=== PATIENT | male | born 1935 | race Caucasian/White ===

== ENCOUNTER 2021-04-27 10:39 | Emergency (ER) | payer OTHER ==
[~2021-04-27] VITALS: Ht 170.2 cm; Wt 88.5 kg
[2021-05-01] MEDS ORDERED: DOXYCYCLINE MO100 MG PO (11:06)
== END 2021-04-27 14:00 | disposition home or self-care (01) ==
LOC: ER1 10:39
DX: Z23 Encounter for immunization (principal); U07.1 COVID-19; I10 Essential (primary) hypertension; E11.9 Type 2 diabetes mellitus without complications; Z95.5 Presence of coronary angioplasty implant and graft; Z88.0 Allergy status to penicillin
CPT/HCPCS: 99283; M0243

== ENCOUNTER 2021-05-01 18:32 | Inpatient (IN) | payer OTHER ==
[~2021-05-01] VITALS: Ht 170.2 cm; Wt 83.9 kg
[~2021-05-01 18:32] MED LIST: DOXYCYCLINE MO100 MG PO
[2021-05-01 19:46] LABS: HEMOGLOBIN 13.3 gm/dl (14.0-17.5); RED BLOOD COUNT 4.12 M/UL (4.20-5.50); WHITE BLOOD COUNT 12.4 K/UL (4.5-11.0)
[2021-05-02 04:08] LABS: HEMOGLOBIN 12.8 gm/dl (14.0-17.5); RED BLOOD COUNT 3.98 M/UL (4.20-5.50)
[2021-05-02] MEDS ORDERED: WARFARIN SODIUM4 MG PO (11:03)
[2021-05-02] MEDS ORDERED: PRAVASTATIN SOD20 MG PO (11:04)
[2021-05-02] MEDS ORDERED: GLIPIZIDE ER2.5 MG PO (11:04)
[2021-05-02] MEDS ORDERED: LISINOPRIL20 MG PO (11:05)
[2021-05-02] MEDS ORDERED: METOPROLOL SUCC25 MG PO (11:07)
[2021-05-02] MEDS ORDERED: ASPIRIN EC81 MG PO (11:08)
[2021-05-03 06:53] LABS: RED BLOOD COUNT 4.12 M/UL (4.20-5.50)
[2021-05-03 06:57] LABS: WHITE BLOOD COUNT 21.2 K/UL (4.5-11.0)
[2021-05-03 07:20] LABS: BUN/CREATININE RATIO 27 (0-10)
[2021-05-04 02:57] LABS: HEMOGLOBIN 13.4 gm/dl (14.0-17.5); RED BLOOD COUNT 4.19 M/UL (4.20-5.50)
[2021-05-04 03:15] LABS: BUN/CREATININE RATIO 28 (0-10)
[2021-05-04 03:22] LABS: WHITE BLOOD COUNT 13.7 K/UL (4.5-11.0)
[2021-05-05 07:16] LABS: RED BLOOD COUNT 4.35 M/UL (4.20-5.50); WHITE BLOOD COUNT 10.8 K/UL (4.5-11.0)
[2021-05-05 07:53] LABS: BUN/CREATININE RATIO 24 (0-10)
[2021-05-06 07:49] LABS: HEMOGLOBIN 13.8 gm/dl (14.0-17.5); RED BLOOD COUNT 4.35 M/UL (4.20-5.50)
[2021-05-06 07:50] LABS: WHITE BLOOD COUNT 13.9 K/UL (4.5-11.0)
[2021-05-06 08:27] LABS: BUN/CREATININE RATIO 27 (0-10)
[2021-05-07 06:44] LABS: HEMOGLOBIN 14.9 gm/dl (14.0-17.5); RED BLOOD COUNT 4.67 M/UL (4.20-5.50); WHITE BLOOD COUNT 11.9 K/UL (4.5-11.0)
[2021-05-07 07:02] LABS: BUN/CREATININE RATIO 27 (0-10)
[2021-05-08 06:59] LABS: HEMOGLOBIN 15.3 gm/dl (14.0-17.5); RED BLOOD COUNT 4.8 M/UL (4.20-5.50); WHITE BLOOD COUNT 12.5 K/UL (4.5-11.0)
[2021-05-08 07:19] LABS: BUN/CREATININE RATIO 25 (0-10)
[2021-05-09 07:19] LABS: BUN/CREATININE RATIO 28 (0-10)
[2021-05-09 07:29] LABS: HEMOGLOBIN 14.4 gm/dl (14.0-17.5); RED BLOOD COUNT 4.56 M/UL (4.20-5.50); WHITE BLOOD COUNT 11.3 K/UL (4.5-11.0)
[2021-05-10 06:54] LABS: BUN/CREATININE RATIO 28 (0-10)
[2021-05-12 04:58] LABS: BUN/CREATININE RATIO 29 (0-10)
[2021-05-13 06:00] LABS: BUN/CREATININE RATIO 34 (0-10)
--- NOTE | 2021-05-15 14:09 | NUR ---
House approved daughter "Veda" can come in to visit patient for 30mins. Visitor must wear appropriate PPE the entire time. Explained to visitor the risks associated with visiting with a positive covid diagnosis at this time. Visitor verbalized understanding.
[2021-05-16 07:58] LABS: HEMOGLOBIN 14.4 gm/dl (14.0-17.5); RED BLOOD COUNT 4.78 M/UL (4.20-5.50); WHITE BLOOD COUNT 10.4 K/UL (4.5-11.0)
[2021-05-17 05:45] LABS: HEMOGLOBIN 14.7 gm/dl (14.0-17.5); RED BLOOD COUNT 4.9 M/UL (4.20-5.50); WHITE BLOOD COUNT 8.5 K/UL (4.5-11.0)
[2021-05-18 07:31] LABS: HEMOGLOBIN 14.2 gm/dl (14.0-17.5); RED BLOOD COUNT 4.72 M/UL (4.20-5.50); WHITE BLOOD COUNT 9.7 K/UL (4.5-11.0)
[2021-05-18 07:50] LABS: BUN/CREATININE RATIO 22 (0-10)
[2021-05-19 06:56] LABS: HEMOGLOBIN 14.8 gm/dl (14.0-17.5); RED BLOOD COUNT 4.89 M/UL (4.20-5.50); WHITE BLOOD COUNT 10.8 K/UL (4.5-11.0)
[2021-05-19 07:13] LABS: BUN/CREATININE RATIO 25 (0-10)
--- NOTE | 2021-05-19 14:15 | NUR ---
PATIENT NOTED TO DESAT INTO THE 70'S WHILE WORKING WITH THERAPY. PATIENT PLACED IN CHAIR AND PLACED ON 12LHF NC. PROVIDER MADE AWARE AND STATED TO PUT PATIENT ON AIRVO AT THIS TIME. RT CALLED.
[2021-05-20 06:33] LABS: HEMOGLOBIN 14.3 gm/dl (14.0-17.5); RED BLOOD COUNT 4.76 M/UL (4.20-5.50); WHITE BLOOD COUNT 12.1 K/UL (4.5-11.0)
[2021-05-21 06:35] LABS: HEMOGLOBIN 13.6 gm/dl (14.0-17.5); RED BLOOD COUNT 4.49 M/UL (4.20-5.50)
[2021-05-21 06:42] LABS: BUN/CREATININE RATIO 31 (0-10); WHITE BLOOD COUNT 8.1 K/UL (4.5-11.0)
[2021-05-22 05:51] LABS: HEMOGLOBIN 14.3 gm/dl (14.0-17.5); RED BLOOD COUNT 4.77 M/UL (4.20-5.50); WHITE BLOOD COUNT 10.3 K/UL (4.5-11.0)
[2021-05-22 06:02] LABS: BUN/CREATININE RATIO 35 (0-10)
--- NOTE | 2021-05-22 06:03 | NUR ---
NOTIFIED DR BRYANT OF INR OF 10.7 COUMADIN IS ON HOLD. RECIEVED NO NEW ORDERS.
[2021-05-23 06:51] LABS: HEMOGLOBIN 14.7 gm/dl (14.0-17.5); RED BLOOD COUNT 4.89 M/UL (4.20-5.50); WHITE BLOOD COUNT 11.4 K/UL (4.5-11.0)
[2021-05-25 08:06] LABS: BUN/CREATININE RATIO 41 (0-10)
[2021-05-27 06:40] LABS: HEMOGLOBIN 13.5 gm/dl (14.0-17.5); RED BLOOD COUNT 4.34 M/UL (4.20-5.50); WHITE BLOOD COUNT 9.7 K/UL (4.5-11.0)
[2021-05-27 07:21] LABS: BUN/CREATININE RATIO 30 (0-10)
[2021-05-29 06:39] LABS: HEMOGLOBIN 13.3 gm/dl (14.0-17.5); RED BLOOD COUNT 4.3 M/UL (4.20-5.50); WHITE BLOOD COUNT 7.7 K/UL (4.5-11.0)
[2021-05-29 07:02] LABS: BUN/CREATININE RATIO 25 (0-10)
[2021-05-29] MEDS ORDERED: STIMULANT LAXA1 EACH PO (19:57)
[2021-05-31 10:14] LABS: HEMOGLOBIN 14.1 gm/dl (14.0-17.5); RED BLOOD COUNT 4.53 M/UL (4.20-5.50); WHITE BLOOD COUNT 8.4 K/UL (4.5-11.0)
[2021-05-31 10:21] LABS: BUN/CREATININE RATIO 22 (0-10)
[2021-05-31] MEDS ORDERED: FLONASE 0.05% N16 GM (15:07)
[2021-05-31] MEDS ORDERED: IPRAT-ALBUT 0.5-3 ML NEB (15:07)
[2021-05-31] MEDS ORDERED: TOBRAMYCIN-DEX2.5 ML EYEBOTH (15:07)
[2021-05-31] MEDS ORDERED: JANTOVEN1 MG PO (15:07)
== END 2021-05-31 19:50 | disposition home health service (06) | DRG 871 ==
LOC: ER1 18:32 → MED SURG 4 21:09 → CDU 21:09 → MED SURG 4 05-02 19:12
PROVIDERS: Family Medicine; Internal Medicine; Internal Medicine Infectious Disease; ADMIT Internal Medicine
PROC: 8E0ZXY6 Isolation (ICD-10-PCS; principal; 2021-05-01)
PROC: XW033E5 Introduction of Remdesivir Anti-infective into Peripheral Vein, Percutaneous Approach, New Technology Group 5 (ICD-10-PCS; 2021-05-01)
PROC: 3E0333Z Introduction of Anti-inflammatory into Peripheral Vein, Percutaneous Approach (ICD-10-PCS; 2021-05-01)
PROC: 5A0955A Assistance with Respiratory Ventilation, Greater than 96 Consecutive Hours, High Flow/Velocity Cannula (ICD-10-PCS; 2021-05-01)
DX: A41.89 Other specified sepsis (principal); U07.1 COVID-19; J12.82 Pneumonia due to coronavirus disease 2019; J96.01 Acute respiratory failure with hypoxia; E87.1 Hypo-osmolality and hyponatremia; I48.92 Unspecified atrial flutter; R65.20 Severe sepsis without septic shock; R79.1 Abnormal coagulation profile; E11.9 Type 2 diabetes mellitus without complications; J40 Bronchitis, not specified as acute or chronic; H10.89 Other conjunctivitis; L89.152 Pressure ulcer of sacral region, stage 2; L89.312 Pressure ulcer of right buttock, stage 2; I25.10 Atherosclerotic heart disease of native coronary artery without angina pectoris; R53.81 Other malaise; Z99.81 Dependence on supplemental oxygen; Z79.4 Long term (current) use of insulin; Z79.82 Long term (current) use of aspirin; Z95.1 Presence of aortocoronary bypass graft; Z82.49 Family history of ischemic heart disease and other diseases of the circulatory system
CPT/HCPCS: 36415; 36600; 71045; 80048; 80053; 82803; 82962; 83615; 83735; 83880; 84100; 85025; 85027; 85610; 86140; 93005; 94640; 94664; 94760; 96374; 97110; 97110-GP-CQ; 97116-GP-CQ; 97162; 97166; 97530; 97530-GP-CQ; 97535; 99285; A6212; J0456; J0696; J1100; J1650; J2543; J7030; U0002